=== PATIENT | female | born 1950 | race Caucasian/White ===

== ENCOUNTER → 2024-04-02 | Outpatient (CLI) | payer MEDICARE, SELFPAY ==
--- NOTE | 2024-04-02 07:30 | XR_ITS ---
MRI abdomen, without contrast. MRCP Date and time of exam: April 02, 2024 0726 hrs. Indications: Intermittent abdominal pain and nausea beginning 4 months ago, cholecystectomy history Technique: Multiple axial and coronal images of the abdomen have been obtained with the Siemens 1.5T MRI scanner. Images obtained included T1 weighted transverse images, T2-weighted transverse images, T2-weighted transverse images fat-suppressed, T2 weighted haste fat suppressed transverse images, T1 weighted images, in and out of phase images, T2-weighted coronal images, breath hold, T2 weighted haze coronal images as well as T2 weighted coronal thick slab images, MRCP. Findings: Mild intrahepatic biliary tract dilatation History indicates cholecystectomy, but the patient's gallbladder is visualized, gallbladder wall thickening is not evident No gallstones Abnormal enlargement common hepatic common bile duct measuring up to 11 mm 3 mm filling defect in the common bile duct, coronal image 14 Fairly abrupt tapering of the distal common bile duct coronal image 15, dilated pancreatic duct measuring 6 mm No pancreatic mass No peripancreatic edema Spleen is not enlarged Minimal perinephric stranding No hydronephrosis Aorta normal size Impression: Mild intrahepatic biliary tract dilatation History given indicates cholecystectomy However the patient's gallbladder is visualized, no stones noted, gallbladder wall is not thickened Abnormal enlargement common hepatic common bile duct measuring up to 11 mm 3 mm filling defect in the common bile duct consistent with small stone Tapering of the distal common bile duct and dilated pancreatic duct, consider stricture including malignant stricture at the ampulla, recommend ERCP follow-up
== END | disposition home or self-care (01) ==
PROVIDERS: PCP Family Medicine; Referring Provider Specialist; Visit Provider Specialist
DX: K83.8 Other specified diseases of biliary tract (principal); Z90.49 Acquired absence of other specified parts of digestive tract
CPT/HCPCS: S8037; 74181

== ENCOUNTER 2024-07-20 10:16 | Emergency (ER) | payer MEDICARE, SELFPAY ==
[2024-07-20] VITALS (7 sets, daily range): BP systolic 129–163; BP diastolic 75–120; PULSE 77–88; RESP 18–20; TEMP 36.6–36.7; O2SAT 91–97; BMI 30.9
--- NOTE | 2024-07-20 | XR_ITS ---
MRI abdomen, without contrast. MRCP Date and time of exam: July 20, 2024 1541 hours INDICATIONS: Vomiting nausea and diarrhea right upper abdominal pain one year, history common bile duct stones Technique: Multiple axial and coronal images of the abdomen have been obtained with the Siemens 1.5T MRI scanner. Images obtained included T1 weighted transverse images, T2-weighted transverse images, T2-weighted transverse images fat-suppressed, T2 weighted haste fat suppressed transverse images, T1 weighted images, in and out of phase images, T2-weighted coronal images, breath hold, T2 weighted haze coronal images as well as T2 weighted coronal thick slab images, MRCP. Findings: No focal liver lesions or intrahepatic biliary tract dilatation Normal gallbladder Common hepatic duct 9 mm common bile duct 4 mm no common hepatic or common bile duct stones Pancreatic duct 3 mm No peripancreatic edema or pancreatic Mass. No splenomegaly Aorta normal size No hydronephrosis No ascites IMPRESSION: Normal gallbladder Mildly enlarged common hepatic duct 9 mm, no comminuted bilateral common bile duct stones Negative for pancreatitis
--- NOTE | 2024-07-20 10:34 | PD.EDNV ---
Nausea/Vomit./Diarrhea-RME/HPI General Chief complaint: Nausea/Vomiting/Diarrhea Stated complaint: VOMITING X3 HOURS Time Seen by Provider: 07/20/24 10:38 Arrival date/time: 07/20/24 10:16 RME / HPI RME / HPI Narrative: 73 year old female with history of COPD, uses oxygen PRN, hyperlipidemia, hypothyroidism presents to the ED BIBA from home for evaluation of nausea and vomiting beginning at ~ 9 AM today. States she has had 5-6 episodes of vomiting since onset, all nonbloody. Denies abdominal pain. Denies any sick contacts with similar GI symptoms. Denies fevers, chills, sweats, chest pain, cough, diarrhea, or urinary symptoms. Related Data Home Medications ?Medication ?Instructions ?Recorded ?Confirmed diphenhydramine HCl 25 mg capsule 250 mg PO HS PRN Insomnia 05/29/17 02/05/24 (Benadryl) trazodone 100 mg tablet 100 mg PO HS 05/29/17 02/05/24 Held on 02/05/24. Instructions: Resume on 02/06/24. aspirin 81 mg tablet 81 mg PO QDAY 02/05/24 02/05/24 desvenlafaxine succinate 100 mg 100 mg PO QDAY 02/05/24 02/05/24 tablet,extended release 24 hr hydrochlorothiazide 12.5 mg capsule 12.5 mg PO QDAY 02/05/24 02/05/24 levothyroxine 50 mcg tablet 50 mcg PO QDAY 02/05/24 02/05/24 memantine 5 mg tablet 5 mg PO QDAY 02/05/24 02/05/24 pantoprazole 40 mg tablet,delayed 40 mg PO QDAY 02/05/24 02/05/24 release ropinirole 0.5 mg tablet 0.5 mg PO QDAY 02/05/24 02/05/24 Previous Rx's ?Medication ?Instructions ?Recorded atorvastatin 40 mg tablet 40 mg PO QPM #30 tabs 05/21/23 clopidogrel 75 mg tablet (Plavix) 75 mg PO QDAY #30 tabs 05/21/23 Allergies Allergy/AdvReac Type Severity Reaction Status Date / Time ciprofloxacin (From Cipro) Allergy Severe Hives Verified 07/20/24 10:43 niacin Allergy Severe WELTS, HOT Verified 07/20/24 10:43 FLUSHES Sulfa (Sulfonamide Allergy Severe Rash Verified 07/20/24 10:43 Antibiotics) Tetracyclines Allergy Severe blister Verified 07/20/24 10:43 Review of Systems Review of Systems Narrative Review of Systems: Constitutional: DENIES; Fevers Eyes: DENIES; Loss of vision Head/Ear/Nose: DENIES; Loss of hearing Throat: DENIES; Dysphagia Cardiovascular: DENIES; Chest pain, dyspnea or syncope Respiratory: DENIES; Shortness of breath Gastrointestinal: SEE HPI +n/v. DENIES; Rectal bleeding or melena. Genitourinary: DENIES; Dysuria (painful or difficult urination) Musculoskeletal: DENIES; Arthralgia (pain in a joint),; Skin: DENIES; Rash Neurological: DENIES; Loss of function or movement Psychiatric: DENIES; recent major life stressor, emotional problem, illicit drug use or abuse Endocrinology: DENIES; Weight change Hematologic/Lymphatic: DENIES; Abnormal bruising Allergic/Immunologic: DENIES; Urticaria (hives) Past Medical History Past Medical History NEUROLOGIC: Positive Neurological Disorders (RESTLESS LEG SYNDROME), Cerebrovascular Accident and Migraine CARDIAC: Positive Cardiac Disorders, Angina (IN THE PAST,), Hypercholesterolemia and Edema RESPIRATORY: Positive Chronic Obstructive Pulmonary Disease (COPD), Asthma and Pneumonia GASTROINTESTINAL: Positive Gastrointestinal Disorders (ABDOMINAL PAIN , N/V AFTER EATING, CONSTIPATION) REPRODUCTIVE: Positive Endometriosis (IN THE PAST) MUSCULOSKELETAL: Positive Musculoskeletal Disorders and Arthritis ENT: Positive Cataracts (BILATERAL) ENDOCRINE: Positive Endocrine Disorders and Hypothyroidism HEMATOLOGIC: Positive Anemia PSYCHO/SOCIAL: Positive Depression, Anxiety and Post Traumatic Stress Disorder OTHER HISTORY: Positive Falls Surgical History SURGICAL: Positive Pacemaker, Ear Surgery, Tonsillectomy, Abdominal Surgery, Joint Replacement (LEFT SHOULDER, RIGHT KNEE) and Hysterectomy (WITH SO) Social History SMOKING STATUS: Former smoker ED Exam Narrative Physical exam: Physical Exam: General: The vital signs were reviewed. O2 sats in the upper 90s and she is got a portable oxygen machine with her. Appears uncomfortable with nausea no active vomiting when I am evaluating her the patient is non-toxic, in no apparent distress and appears healthy with a patent airway, no respiratory distress and has no apparent circulatory problems. Head & Scalp: Normocephalic, atraumatic. Face: Appears normal and is without lesions, deformity. Ears: Left external pinna appears normal. Right external pinna appears normal. Eyes: The sclera is anicteric. No obvious photophobia. The Left and Right Orbit/Lid/Conjunctiva appears normal without swelling, discoloration or injection. Nose: The nose is without deformity, discharge or tenderness; Throat: Appears normal. The mucous membranes are pink and moist without exudates, redness or mass seen. The tongue appears normal. Neck: The neck is supple and no apparent mass or adenopathy. Chest: The chest wall is normal in size and symmetry and has no chest wall tenderness or crepitus. The patient displays normal ventilator effort without retractions, accessory muscle use and has adequate air movement bilaterally with no wheezes and no rales. Cardiovascular: Regular rate and rhythm; No murmurs, rubs, or gallops; Gastrointestinal: The abdomen appears normal. No obvious hernias or mass. The abdomen is soft and benign, non-distended, with no pain, no guarding and no rebound tenderness. Bowel sounds are present and normal sounding. No CVA tenderness. Genitourinary: Back/Spine: Normal inspection nontender Extremities/Musculoskeletal/lymphatic: The bilateral upper and lower extremities are warm. There is no evidence of arterial insufficiency. There is no evidence of venous insufficiency/edema. The patient spontaneously moves bilateral upper and lower extremities with no pain and no limitation of movement. There is no apparent, injury or trauma. Skin: The skin is warm, dry and intact. No rashes. No petechia. No purpura. No abnormal bruising. The color is appropriate with no cyanosis. Mental status/Psychiatric: Mental status is appropriate for age. The patient has no apparent delusions, visual hallucinations, no apparent audible hallucinations. The patient has no apparent suicidal thoughts/ideation and no apparent homicidal thoughts/ideation. Neurological: The patient is awake, alert, interactive, cordial, cooperative and is oriented to name and situation. The patient follows commands and answers historical question with no impairment. There is no visual disturbance apparent. The pupils are equal and reactive bilaterally with normal eye movements and no diplopia The bilateral upper and lower extremities have normal strength, normal range of motion and normal functioning. The gait, station and balance were not tested due to acuity Course Quality Measures none Orders Category Date Time Status MRI Screening NOW Care 07/20/24 14:44 Active MR MRCP Stat Exams 07/20/24 Completed US abdomen limited Stat Exams 07/20/24 14:43 Completed CBC Stat Lab 07/20/24 10:57 Completed Comprehensive Metabolic Panel Stat Lab 07/20/24 10:57 Completed Lipase Stat Lab 07/20/24 10:57 Completed Troponin I Stat Lab 07/20/24 10:57 Completed Urinalysis Stat Lab 07/20/24 10:57 Completed Urinalysis, C/S if Indicated Stat Lab 07/20/24 10:57 Completed Morphine Inj Med 07/20/24 14:44 Discontinued 2 mg IVP X1 ONE Ondansetron Inj [Zofran Inj] Med 07/20/24 10:38 Discontinued 4 mg IV X1 ONE Ondansetron Inj [Zofran Inj] Med 07/20/24 14:44 Discontinued 4 mg IV X1 ONE Sodium Chloride 0.9% 1000 ml [Ns] 1,000 ml Med 07/20/24 10:45 Active IV 200 mls/hr Vital Signs Vital signs: Vital Signs Temperature 98.0 F 07/20/24 10:20 Pulse Rate 84 07/20/24 10:20 Respiratory Rate 18 07/20/24 10:20 Blood Pressure 153/85 H 07/20/24 10:20 Pulse Oximetry (%) 95 07/20/24 10:20 Oxygen Delivery Method Nasal Cannula 07/20/24 10:20 Oxygen Flow Rate 2 07/20/24 10:20 Pulse ox is 95% on 2L nasal cannula which is adequate. Nausea/Vomiting/Diarrhea MDM Narrative MDM Narrative:: Patient has acute onset of nausea followed by vomiting multiple times comes in with clear lungs O2 sats adequate no chest pain does not appear to be ill in any other way other than acute onset nausea vomiting. No report of headache. Will give her some Zofran and some fluids and reevaluate. Medical workup reveals a white count of 8.1 hemoglobin of 12.5 electrolytes are within normal limits BUN 21 creatinine 1.3 lipase is negative urinalysis unremarkable. Ultrasound was done today shows a gallbladder present which is a quandary as the patient states she has surgically has her gallbladder removed and is normal gallbladder. At 1430 hours, the patient is complaining of increased right upper quadrant pain. Abdominal ultrasound is negative although patient reports she has had a cholecystectomy, will order MRCP. Note patient had an MRCP done this past March with that showed a defect suggesting a choledocholithiasis about 3 mm. Evidently no ERCP was done and there was no referral. MRCP was done today which reveals a normal gallbladder mildly enlarged common bile duct at 9 mm but no common hepatic duct stones are seen. There is no stones in the bile duct either. The bile duct is approximately 4 mm per this report. I contacted Dr. Goodman and verified this report There is certainly a quandary as the patient is convicted that she had her gallbladder removed in [place] 20 years ago and she is got scars from the laparoscopy. Besides this quandary the patient is feeling much better. recheck of her abdomen is 1732 hrs. abdomen soft and benign she feels good wants to go home. Should be noted her sick in the hospital at this present time. She is advised to follow-up with her doctor for reevaluation in 1 to 2 days or return if getting worse in any way specially there is any fever vomiting increasing pain. She has had no nausea or vomiting since she has arrived and after she got her initial dose of medications Patient data External records reviewed:: [facility] previous records (I reviewed ED visit on 12/08/2023 ) and EMS form Clinical information provided by:: patient and EMS Social determinants that could affect healthcare access:: none Patient has the following chronic illnesses:: COPD, uses oxygen PRN, hyperlipidemia, hypothyroidism How is presenting disease/condition affected by chronic disease/condition?: exacerbated by Evaluation data The following diagnostics were reviewed and interpreted by me:: lab results Lab and/or radiology exams considered but not ordered:: None Interpretation Summary: Ordering Physician: Solitario Raymond MD Date of Service: 07/20/24 Procedure(s): US abdomen limited Accession Number(s): [id number] cc: Marcela Arroyo; Solitario Raymond MD; Toro Hill MD~ Examination: Abdomen sonogram, Limited Date and time of exam: July 20, 2024 1452 hours INDICATIONS: Right upper abdominal pain and vomiting beginning today Technique: Real-time cordova scale transabdominal sonographic images of the upper abdomen obtained. Findings: Normal gallbladder Common bile duct 0.8 cm no stones Pancreatic head 2.1 cm Liver 16.3 cm irregular contour fatty infiltration no focal liver lesions Normal hepatopedal portal venous flow Patent IVC IMPRESSION: Normal gallbladder No common bile duct stones Mild hepatomegaly fatty liver suspect primary hepatocellular disease Dictated By: Toro Hill MD Signed By: <Electronically signed by Toro Hill MD in OV> 07/20/24 1513 Ordering Physician: Solitario Raymond MD Date of Service: 07/20/24 Procedure(s): MR MRCP Accession Number(s): [id number] cc: Marcela Arroyo; Solitario Raymond MD; Toro Hill MD~ MRI abdomen, without contrast. MRCP Date and time of exam: July 20, 2024 1541 hours INDICATIONS: Vomiting nausea and diarrhea right upper abdominal pain one year, history common bile duct stones Technique: Multiple axial and coronal images of the abdomen have been obtained with the Siemens 1.5T MRI scanner. Images obtained included T1 weighted transverse images, T2-weighted transverse images, T2-weighted transverse images fat-suppressed, T2 weighted haste fat suppressed transverse images, T1 weighted images, in and out of phase images, T2-weighted coronal images, breath hold, T2 weighted haze coronal images as well as T2 weighted coronal thick slab images, MRCP. Findings: No focal liver lesions or intrahepatic biliary tract dilatation Normal gallbladder Common hepatic duct 9 mm common bile duct 4 mm no common hepatic or common bile duct stones Pancreatic duct 3 mm No peripancreatic edema or pancreatic Mass. No splenomegaly Aorta normal size No hydronephrosis No ascites IMPRESSION: Normal gallbladder Mildly enlarged common hepatic duct 9 mm, no comminuted bilateral common bile duct stones Negative for pancreatitis Dictated By: Toro Hill MD Signed By: <Electronically signed by Toro Hill MD in OV> 07/20/24 1658 Medications / Prescriptions Medications / Prescriptions considered but not ordered:: None Medication administrations:: Medication Administration History Sodium Chloride (Ns) 1,000 mls @ 200 mls/hr IV .Q5H JAVAN Stop: 08/19/24 10:44 Last Infusion: 07/20/24 15:40 Dose: 0 mls/hr Documented By: Admin: 07/20/24 11:10 Dose: 200 mls/hr Documented By: TM Discontinued Medications Morphine Sulfate (Morphine Sulf Inj 10 Mg/Ml Vial) 2 mg IVP X1 ONE Stop: 07/20/24 14:45 Last Admin: 07/20/24 17:02 Dose: 2 mg Documented By: TM Ondansetron HCl (Ondansetron Inj 2 Mg/Ml Inj 2 Ml) 4 mg IV X1 ONE Stop: 07/20/24 10:39 Last Admin: 07/20/24 11:07 Dose: 4 mg Documented By: TM Ondansetron HCl (Ondansetron Inj 2 Mg/Ml Inj 2 Ml) 4 mg IV X1 ONE; Protocol Stop: 07/20/24 14:45 Last Admin: 07/20/24 17:01 Dose: 4 mg Documented By: TM See above Consultations Consultation(s) initiated? (list below): Yes Consultation #1 (Physician, Specialty, Details): I spoke with radiologist Dr. Desir regarding MRCP results. Time: 17:34 Diagnosis Nausea Differential Diagnosis: food poisoning, gastroenteritis, clostridium difficile infection, drug-induced nausea and vomiting and dehydration Most likely diagnosis given after review of the tests above:: Nausea and vomiting Right upper quadrant abdominal pain Admission Indicated Admission indicated?: not indicated Admission Request Was there a request for admission?: No Disposition Plan Disposition Plan: Discharge Discharge Attestation Discharge Attestation: The patient and all family members were given an opportunity to ask questions and understood the discharge instructions. Discharge instructions specifically effects, indications for sooner follow up or return to the emergency department, and the expected course of current diagnosis. Patient condition: Stable Discharge Plan Plan Patient Disposition: HOME (Self Care) Prescriptions/Referrals Prescriptions/Med Rec: No Action trazodone 100 mg Tablet 100 mg PO HS diphenhydramine HCl [Benadryl] 25 mg Capsule 250 mg PO HS PRN (Reason: Insomnia) levothyroxine 50 mcg tablet 50 mcg PO QDAY pantoprazole 40 mg tablet,delayed release (DR/EC) 40 mg PO QDAY ropinirole 0.5 mg tablet 0.5 mg PO QDAY hydrochlorothiazide 12.5 mg capsule 12.5 mg PO QDAY aspirin 81 mg Tablet 81 mg PO QDAY memantine 5 mg tablet 5 mg PO QDAY desvenlafaxine succinate 100 mg tablet extended release 24 hr 100 mg PO QDAY atorvastatin 40 mg tablet 40 mg PO QPM Qty: 30 0RF clopidogrel [Plavix] 75 mg tablet 75 mg PO QDAY Qty: 30 0RF Referrals: Marcela Arroyo FNP [Primary Care Provider] - In 1 week Problem List Clinical Impression: Nausea & vomiting, Right upper quadrant abdominal pain Impression comment: History of choledocholithiasis this past March 2024 but today's MRCP reveals no choledocholithiasis History of cholecystectomy per the patient 20 years ago but ultrasound and MRCP revealed gallbladder present this is a quandary for both patient and myself Patient/Caregiver Discharge Instructions Education Materials: Abdominal Pain Additional Instructions: Today your nausea and vomiting seems to be controlled. If you are getting worse in any way please return for reevaluation especially if there is fever intractable pain or nausea and vomiting. Please get the records from [facility] where you had your gallbladder removed and have your doctor correlate this with the fact that you have gallbladder is visualized on your scans today. Again return if getting worse Print Language: Nepali Stand Alone Forms: [employer] Award Info., Patient Portal Info Letter
--- NOTE | 2024-07-20 10:47 | PC.NURSE ---
PT BIBA FROM HOME FOR N/V X3 HOURS. UNKNOWN CAUSE, HOWEVER PT DID TAKE MEDICATIONS ON EMPTY STOMACH. LBM WAS THIS MORNING. PT GCS 15, STEADY GAIT TO AND FROM BR, DOES NOT USE ANY ASSISTIVE DEVICES. VSS, CALL [facility]K IN REACH, WILL CONTINUE W/POC.
[2024-07-20] MEDS: ONDANSETRON INJ 2 MG/ML INJ 2 ML 4 MG IV ×2 (11:07→17:01)
[2024-07-20] MEDS: SODIUM CHLORIDE 0.9% 1000 ML 1,000 ML 200 ML IV (11:10)
[2024-07-20 11:12] LABS: Basophils # (Auto) 0.1 Thou/mm3 (0.0-0.2); Basophils % (Auto) 1 % (0-2.5); Eosinophils # (Auto) 0.2 Thou/mm3 (0.0-0.5); Eosinophils % (Auto) 2 % (0-10); Hematocrit 36.9 % (36.0-46.0); Hemoglobin 12.5 g/dL (12.0-16.0); Immature Granulocytes % (Auto) 1 % (0-0); Immature Granulocytes Auto 0.04 Thou/mm3 (0.00-0.00); Lymphocytes # (Auto) 1.2 Thou/mm3 (1.0-4.8); Lymphocytes % (Auto) 15 % (10-50); Mean Corpuscular HGB Conc 33.9 g/dl (31.0-37.0); Mean Corpuscular Hemoglobin 30.6 pg (25.0-35.0); Mean Corpuscular Volume 90 fL (80-100); Monocytes # (Auto) 0.6 Thou/mm3 (0.0-0.8); Monocytes % (Auto) 7 % (0-12); Neutrophils % (Auto) 75 % (37-80); Nucleated Red Blood Cell % 0 /100 WBC (0); Platelet Count 252 Thou/mm3 (140-440); RDW Standard Deviation 43.5 fL (36.4-46.3); Red Blood Count 4.08 Miln/mm3 (4.00-5.20); White Blood Count 8.1 Thou/mm3 (3.6-11.0)
[2024-07-20 11:15] LABS: Bilirubin,Urine Negative (Negative); Blood,Urine Negative (Negative); Clarity,Urine Clear (Clear/Hazy); Collection Type, Urine Catheter; Color,Urine Colorless (Lt Yel-Yel); Culture Indicated,Urine Not Indicated; Glucose, Urine Negative (Negative); Hyaline Casts,Urine < 1 /hpf (0-1); Ketones,Urine Negative (Negative); Leukocyte Esterase,Urine Negative (Negative); Nitrite,Urine Negative (Negative); Protein,Urine Negative (Neg - Trace); RBC,Urine < 1 /hpf (0-3); Specific Gravity,Urine 1.008 (1.001-1.035); Squamous Epithelial Cell,Urine 0 /hpf (0-5); Urobilinogen,Urine Negative mg/dL (0.0-1.0); WBC,Urine < 1 /hpf (0-5)
[2024-07-20 12:08] LABS: Alanine Aminotransferase 10 U/L (10-49); Albumin, Serum 4.8 gm/dL (3.4-4.8); Albumin/Globulin Ratio 1.7 (1.2-2.2); Alkaline Phosphatase 114 U/L (46-116); Anion Gap 11 (7-16); Aspartate Amino Transferase 20 U/L (0-34); BUN/Creatinine Ratio 16 Ratio (12-20); Bilirubin,Total 0.4 mg/dL (0.3-1.2); Blood Urea Nitrogen 21 mg/dL (9-23); Calcium 9.8 mg/dL (8.3-10.6); Calcium (Corrected) 9.8 mg/dL (8.5-10.1); Carbon Dioxide 29.9 mMol/L (20.0-31.0); Chloride 102 mMol/L (98-107); Creatinine (Component) 1.3 mg/dL (0.6-1.3); Estimated Creatinine Clearance 39.8 mL/min (>60); Globulin 2.9 gm/dL (2.3-3.5); Glucose 130 mg/dL (74-106); Lipase 32 U/L (12-53); Osmolality,Calculated 289 (275-295); Potassium 3.4 mMol/L (3.4-5.1); Sodium 143 mMol/L (136-145); Total Protein 7.7 gm/dL (5.7-8.2); Troponin I < 0.020 ng/mL (0.0-0.045); eGFR 43 See Note
--- NOTE | 2024-07-20 14:43 | XR_ITS ---
Examination: Abdomen sonogram, Limited Date and time of exam: July 20, 2024 1452 hours INDICATIONS: Right upper abdominal pain and vomiting beginning today Technique: Real-time cordova scale transabdominal sonographic images of the upper abdomen obtained. Findings: Normal gallbladder Common bile duct 0.8 cm no stones Pancreatic head 2.1 cm Liver 16.3 cm irregular contour fatty infiltration no focal liver lesions Normal hepatopedal portal venous flow Patent IVC IMPRESSION: Normal gallbladder No common bile duct stones Mild hepatomegaly fatty liver suspect primary hepatocellular disease
--- NOTE | 2024-07-20 15:25 | PC.NURSE ---
PT REQUEST NEW IV OTHER IV IN AC HAD THE PUMP BEEPING FREQUENTLY.
--- NOTE | 2024-07-20 15:49 | PC.NURSE ---
PT TO MRI AT THIS TIME
[2024-07-20] MEDS: MORPHINE SULF INJ 10 MG/ML VIAL 2 MG IVP (17:02)
== END 2024-07-20 19:32 | disposition home or self-care (01) ==
PROVIDERS: Emergency Provider Emergency Medicine; PCP Nurse Practitioner
DX: R11.2 Nausea with vomiting, unspecified (principal); R10.11 Right upper quadrant pain; Z90.49 Acquired absence of other specified parts of digestive tract; J44.9 Chronic obstructive pulmonary disease, unspecified; E03.9 Hypothyroidism, unspecified; E78.5 Hyperlipidemia, unspecified
CPT/HCPCS: 36415; 76705; 80053; 81001; 83690; 84484; 85025; 96360; 96361; 99284; J2270; J2405; J7030; S8037; 74181

== ENCOUNTER → 2024-09-13 | Outpatient (CLI) | payer OTHER, SELFPAY ==
[2024-09-13 08:58] LABS: Basophils # (Auto) 0.1 Thou/mm3 (0.0-0.2); Basophils % (Auto) 1 % (0-2.5); Eosinophils # (Auto) 0.4 Thou/mm3 (0.0-0.5); Eosinophils % (Auto) 6 % (0-10); Hematocrit 34.3 % (36.0-46.0); Hemoglobin 11.2 g/dL (12.0-16.0); Immature Granulocytes % (Auto) 0 % (0-0); Immature Granulocytes Auto 0.01 Thou/mm3 (0.00-0.00); Lymphocytes # (Auto) 1.7 Thou/mm3 (1.0-4.8); Lymphocytes % (Auto) 28 % (10-50); Mean Corpuscular HGB Conc 32.7 g/dl (31.0-37.0); Mean Corpuscular Hemoglobin 29.8 pg (25.0-35.0); Mean Corpuscular Volume 91 fL (80-100); Monocytes # (Auto) 0.8 Thou/mm3 (0.0-0.8); Monocytes % (Auto) 13 % (0-12); Neutrophils # (Auto) 3.2 Thou/mm3 (1.8-7.7); Neutrophils % (Auto) 52 % (37-80); Nucleated Red Blood Cell % 0 /100 WBC (0); Platelet Count 218 Thou/mm3 (140-440); Red Blood Count 3.76 Miln/mm3 (4.00-5.20); White Blood Count 6.1 Thou/mm3 (3.6-11.0)
[2024-09-13 09:29] LABS: Alanine Aminotransferase 12 U/L (10-49); Albumin, Serum 4.3 gm/dL (3.4-4.8); Albumin/Globulin Ratio 1.8 (1.2-2.2); Alkaline Phosphatase 88 U/L (46-116); Anion Gap 10 (7-16); Aspartate Amino Transferase 19 U/L (0-34); BUN/Creatinine Ratio 20 Ratio (12-20); Bilirubin,Total 0.3 mg/dL (0.3-1.2); Blood Urea Nitrogen 28 mg/dL (9-23); Calcium 8.9 mg/dL (8.3-10.6); Calcium (Corrected) 8.9 mg/dL (8.5-10.1); Chloride 98 mMol/L (98-107); Cholesterol 282 mg/dL (132-200); Creatinine (Component) 1.4 mg/dL (0.6-1.3); Globulin 2.4 gm/dL (2.3-3.5); Glucose 122 mg/dL (74-106); HDL Cholesterol 56 mg/dL (40-60); LDL Cholesterol,Calculated 183 mg/dL (0-130); Osmolality,Calculated 291 (275-295); Potassium 4.5 mMol/L (3.4-5.1); Sodium 143 mMol/L (136-145); Thyroid Stimulating Hormone 4.81 uIU/mL (0.55-4.78); Total Protein 6.7 gm/dL (5.7-8.2); Triglycerides 215 mg/dL (30-150); eGFR 40 See Note
== END | disposition home or self-care (01) ==
LOC: COPL 07:59
PROVIDERS: PCP Family Medicine; Referring Provider Family Medicine; Visit Provider Family Medicine
DX: Z00.00 Encounter for general adult medical examination without abnormal findings (principal); E78.2 Mixed hyperlipidemia; E78.5 Hyperlipidemia, unspecified; I10 Essential (primary) hypertension; I63.9 Cerebral infarction, unspecified; Z86.73 Personal history of transient ischemic attack (TIA), and cerebral infarction without residual deficits
CPT/HCPCS: 36415; 80053; 80061; 84443; 85025

== ENCOUNTER → 2025-01-13 | Outpatient (CLI) | payer OTHER, SELFPAY ==
[2025-01-13 09:26] LABS: Collection Type, Urine Clean Catch
[2025-01-13 09:44] LABS: Basophils # (Auto) 0.1 Thou/mm3 (0.0-0.2); Basophils % (Auto) 1 % (0-2.5); Eosinophils # (Auto) 0.4 Thou/mm3 (0.0-0.5); Eosinophils % (Auto) 6 % (0-10); Hematocrit 36.1 % (36.0-46.0); Hemoglobin 11.4 g/dL (12.0-16.0); Immature Granulocytes Auto 0.01 Thou/mm3 (0.00-0.00); Lymphocytes # (Auto) 1.7 Thou/mm3 (1.0-4.8); Lymphocytes % (Auto) 29 % (10-50); Mean Corpuscular HGB Conc 31.6 g/dl (31.0-37.0); Mean Corpuscular Hemoglobin 30.4 pg (25.0-35.0); Mean Corpuscular Volume 96 fL (80-100); Monocytes # (Auto) 0.7 Thou/mm3 (0.0-0.8); Monocytes % (Auto) 11 % (0-12); Neutrophils # (Auto) 3.1 Thou/mm3 (1.8-7.7); Neutrophils % (Auto) 52 % (37-80); Nucleated Red Blood Cell # 0.00 Thou/mm3 (0.00-0.00); Nucleated Red Blood Cell % 0 /100 WBC (0); Platelet Count 202 Thou/mm3 (140-440); RDW Standard Deviation 47.9 fL (36.4-46.3); Red Blood Count 3.75 Miln/mm3 (4.00-5.20); White Blood Count 6.0 Thou/mm3 (3.6-11.0)
[2025-01-13 09:53] LABS: Bilirubin,Urine Negative (Negative); Blood,Urine Negative (Negative); Clarity,Urine Clear (Clear/Hazy); Color,Urine Lt-Yellow (Lt Yel-Yel); Glucose, Urine Negative (Negative); Hyaline Casts,Urine 1 /hpf (0-1); Ketones,Urine Negative (Negative); Leukocyte Esterase,Urine Negative (Negative); Nitrite,Urine Negative (Negative); PH,Urine 5.5 (5.0-7.0); Protein,Urine Negative (Neg - Trace); RBC,Urine 1 /hpf (0-3); Specific Gravity,Urine 1.014 (1.001-1.035); Squamous Epithelial Cell,Urine < 1 /hpf (0-5); Urobilinogen,Urine Negative mg/dL (0.0-1.0); WBC,Urine < 1 /hpf (0-5)
[2025-01-13 10:03] LABS: Sed Rate (ESR) 23 mm/hr (0-30)
[2025-01-13 10:05] LABS: Alanine Aminotransferase 10 U/L (10-49); Albumin, Serum 4.9 gm/dL (3.4-4.8); Albumin/Globulin Ratio 2.5 (1.2-2.2); Alkaline Phosphatase 82 U/L (46-116); Anion Gap 11 (7-16); Aspartate Amino Transferase 19 U/L (0-34); BUN/Creatinine Ratio 14 Ratio (12-20); Bilirubin,Total 0.4 mg/dL (0.3-1.2); Blood Urea Nitrogen 23 mg/dL (9-23); Calcium 9.2 mg/dL (8.3-10.6); Calcium (Corrected) 9.2 mg/dL (8.5-10.1); Carbon Dioxide 34.6 mMol/L (20.0-31.0); Cardiac Risk Estimate 4.8 RATIO (3.7-5.6); Chloride 98 mMol/L (98-107); Cholesterol 230 mg/dL (132-200); Creatinine (Component) 1.6 mg/dL (0.6-1.3); Free T4 (Free Thyroxine) 1.10 ng/dL (0.89-1.76); Globulin 2.0 gm/dL (2.3-3.5); Glucose 119 mg/dL (74-106); HDL Cholesterol 48 mg/dL (40-60); LDL Cholesterol,Calculated 142 mg/dL (0-130); Osmolality,Calculated 291 (275-295); Potassium 3.6 mMol/L (3.4-5.1); Sodium 144 mMol/L (136-145); Thyroid Stimulating Hormone 2.82 uIU/mL (0.55-4.78); Total Protein 6.9 gm/dL (5.7-8.2); Triglycerides 198 mg/dL (30-150); eGFR 34 See Note
== END | disposition home or self-care (01) ==
LOC: COPL 08:23
PROVIDERS: PCP Family Medicine; Referring Provider Family Medicine; Visit Provider Surgery
DX: R10.11 Right upper quadrant pain (principal); E78.2 Mixed hyperlipidemia; I10 Essential (primary) hypertension; R79.89 Other specified abnormal findings of blood chemistry; D64.9 Anemia, unspecified; R10.84 Generalized abdominal pain
CPT/HCPCS: 36415; 80053; 80061; 81001; 84439; 84443; 85025; 85652